=== PATIENT | male | born 1980 | race Caucasian/White ===

== ENCOUNTER 2023-02-08 14:16 | Inpatient (IN) | payer OTHER ==
[2023-02-08] MEDS ORDERED: Albuterol/Ipratropium 3.0-0.5 MG/3 ML Neb Soln NEB PRN ×2 (14:46→16:00)
[2023-02-08] MEDS ORDERED: Temazepam 15 MG Cap PO PRN (14:46)
[2023-02-08] MEDS ORDERED: Sennosides/Docusate Sodium 50-8.6 MG Tab PO PRN (14:46)
[2023-02-08] MEDS ORDERED: Acetaminophen 325 MG Tab PO PRN (14:46)
[2023-02-08] MEDS ORDERED: Melatonin 3 MG Tab PO PRN (14:46)
[2023-02-08] MEDS ORDERED: Polyethylene Glycol 3350 Powder 17 GM Packet PO PRN (14:46)
[2023-02-08] MEDS ORDERED: Sodium Chloride 0.9% 10 ML Syringe FLUSH PRN (14:46)
[2023-02-08] MEDS ORDERED: Acetaminophen/HYDROcodone 325-10 MG Tab PO PRN (14:46)
[2023-02-08] MEDS ORDERED: Benzonatate 100 MG Cap PO PRN (14:46)
[2023-02-08] MEDS ORDERED: Magnesium Hydroxide 400 MG/5 ML Susp 30 ML Cup PO PRN (14:46)
[2023-02-08] MEDS: metFORMIN 500 MG Tab PO SCH (18:09)
[2023-02-08] MEDS: Apixaban 5 MG Tab PO SCH (21:01)
[2023-02-08] MEDS: Furosemide 40 MG Tab PO SCH (21:01)
[2023-02-08] MEDS: amLODIPine 5 MG Tab PO SCH (21:01)
[2023-02-08] MEDS: atorvaSTATin 10 MG Tab PO SCH (21:01)
[2023-02-08] MEDS: hydrALAZINE 25 MG Tab PO SCH (21:02)
[2023-02-08] MEDS: guaiFENesin/Dextromethorphan 100-10 MG/5 ML Soln 5 ML Cup PO PRN (21:14)
[2023-02-09] MEDS: Pantoprazole 40 MG Tab.CR PO SCH (06:02)
[2023-02-09] MEDS: Aspirin 81 MG Tab.Chew PO SCH (09:00)
[2023-02-09] MEDS: Magnesium Oxide 400 MG Tab PO SCH (09:00)
[2023-02-09] MEDS: Furosemide 40 MG Tab PO SCH ×2 (09:00→20:38)
[2023-02-09] MEDS: metFORMIN 500 MG Tab PO SCH ×2 (09:00→17:12)
[2023-02-09] MEDS: Apixaban 5 MG Tab PO SCH ×2 (09:01→20:38)
[2023-02-09] MEDS: hydrALAZINE 25 MG Tab PO SCH ×2 (09:01→20:38)
[2023-02-09] MEDS: Losartan 50 MG Tab PO SCH (09:03)
[2023-02-09] MEDS: Fluticasone NASAL Spray 16 GM Bottle NASBOTH SCH ×2 (16:06→20:40)
[2023-02-09] MEDS ORDERED: Ondansetron 4 MG Tab.DIS PO PRN (16:09)
[2023-02-09] MEDS ORDERED: Scopolamine 1.5 MG Transdermal Patch TOP ONE (16:10)
[2023-02-09] MEDS: atorvaSTATin 10 MG Tab PO SCH (20:37)
[2023-02-09] MEDS: guaiFENesin/Dextromethorphan 100-10 MG/5 ML Soln 5 ML Cup PO PRN (20:37)
[2023-02-09] MEDS: amLODIPine 5 MG Tab PO SCH (20:38)
[2023-02-10] MEDS: Pantoprazole 40 MG Tab.CR PO SCH (06:02)
[2023-02-10] MEDS ORDERED: guaiFENesin 600 MG Tab.ER PO SCH (09:00)
[2023-02-10] MEDS: Losartan 50 MG Tab PO SCH (10:25)
[2023-02-10] MEDS: Apixaban 5 MG Tab PO SCH ×2 (10:25→20:53)
[2023-02-10] MEDS: hydrALAZINE 25 MG Tab PO SCH ×2 (10:26→20:52)
[2023-02-10] MEDS: Furosemide 40 MG Tab PO SCH ×2 (10:26→20:54)
[2023-02-10] MEDS: Magnesium Oxide 400 MG Tab PO SCH (10:26)
[2023-02-10] MEDS: metFORMIN 500 MG Tab PO SCH ×2 (10:26→18:00)
[2023-02-10] MEDS: Aspirin 81 MG Tab.Chew PO SCH (10:26)
[2023-02-10] MEDS: Fluticasone NASAL Spray 16 GM Bottle NASBOTH SCH ×2 (10:27→20:58)
[2023-02-10] MEDS ORDERED: guaiFENesin 600 MG Tab.ER PO ONE ×2 (18:01→21:00)
[2023-02-10] MEDS ORDERED: predniSONE 20 MG Tab PO ONE ×2 (18:02→21:00)
[2023-02-10] MEDS ORDERED: Oxymetazoline 0.05% Nasal Spray 30 ML Bottle NASBOTH PRN (18:02)
[2023-02-10] MEDS ORDERED: diphenhydrAMINE 50 MG Cap PO ONE ×2 (18:03→21:00)
[2023-02-10] MEDS: amLODIPine 5 MG Tab PO SCH (20:52)
[2023-02-10] MEDS: atorvaSTATin 10 MG Tab PO SCH (20:53)
[2023-02-11] MEDS: Pantoprazole 40 MG Tab.CR PO SCH ×2 (05:52→16:51)
[2023-02-11 06:20] LABS: BASOPHILS PERCENT AUTO 0.2 % (0.0-1.0); EOSINOPHILS PERCENT AUTO 0.1 % (1.0-3.0); HEMATOCRIT 44.6 % (40.0-54.0); HEMOGLOBIN 14.9 g/dL (14.0-18.0); LYMPHOCYTES PERCENT AUTO 13.8 % (20.5-50.1); MEAN CORPUSCULAR HGB CONC 33.4 g/dL (33.0-35.0); MEAN CORPUSCULAR VOLUME 89.9 fL (80-100); MONOCYTES PERCENT AUTO 2.8 % (2-8); NEUTROPHILS PERCENT AUTO 83.1 % (42.2-75.2); PLATELET COUNT,PLT 237 10^3/uL (150-450); RED BLOOD CELL COUNT 4.96 10^6/uL (4.6-6.2); WHITE BLOOD CELL COUNT,WBC 11.8 10^3/uL (5.0-10.0)
[2023-02-11 06:36] LABS: ALBUMIN 2.8 g/dL (3.4-5.0); ANION GAP 14.2 mEq/L (7-13); BUN/CREATININE RATIO 20.9 (No establ ref range); CALCIUM 8.5 mg/dL (8.5-10.1); CREATININE 1.39 mg/dL (0.70-1.30); EST CRCL DRUG DOSING (CG) 82.74 mL/min; POTASSIUM,K 4.2 mmol/L (3.5-5.1); PROTEIN TOTAL,TP 7.4 g/dL (6.4-8.2)
[2023-02-11 06:42] LABS: A/G RATIO 0.61
[2023-02-11] MEDS: Aspirin 81 MG Tab.Chew PO SCH (08:05)
[2023-02-11] MEDS: Apixaban 5 MG Tab PO SCH ×2 (08:05→21:08)
[2023-02-11] MEDS: guaiFENesin 600 MG Tab.ER PO SCH ×2 (08:05→21:07)
[2023-02-11] MEDS: metFORMIN 500 MG Tab PO SCH ×2 (08:05→17:30)
[2023-02-11] MEDS: Furosemide 40 MG Tab PO SCH (08:06)
[2023-02-11] MEDS: Magnesium Oxide 400 MG Tab PO SCH (08:06)
[2023-02-11] MEDS: Losartan 50 MG Tab PO SCH (08:06)
[2023-02-11] MEDS: hydrALAZINE 25 MG Tab PO SCH ×2 (08:06→21:06)
[2023-02-11] MEDS: Fluticasone NASAL Spray 16 GM Bottle NASBOTH SCH ×2 (08:07→21:09)
[2023-02-11] MEDS: Loratadine 10 MG Tab PO SCH (21:07)
[2023-02-11] MEDS: atorvaSTATin 10 MG Tab PO SCH (21:08)
[2023-02-11] MEDS: amLODIPine 5 MG Tab PO SCH (21:09)
[2023-02-11] MEDS: guaiFENesin/Dextromethorphan 100-10 MG/5 ML Soln 5 ML Cup PO PRN (22:51)
[2023-02-12] MEDS: Pantoprazole 40 MG Tab.CR PO SCH ×2 (05:49→17:00)
[2023-02-12] MEDS: metFORMIN 500 MG Tab PO SCH ×2 (09:16→17:00)
[2023-02-12] MEDS: Apixaban 5 MG Tab PO SCH ×2 (09:16→21:16)
[2023-02-12] MEDS: Aspirin 81 MG Tab.Chew PO SCH (09:16)
[2023-02-12] MEDS: Losartan 50 MG Tab PO SCH (09:17)
[2023-02-12] MEDS: guaiFENesin 600 MG Tab.ER PO SCH ×2 (09:18→21:16)
[2023-02-12] MEDS: Magnesium Oxide 400 MG Tab PO SCH (09:18)
[2023-02-12] MEDS: hydrALAZINE 25 MG Tab PO SCH ×2 (09:18→21:16)
[2023-02-12] MEDS: Fluticasone NASAL Spray 16 GM Bottle NASBOTH SCH ×2 (09:19→21:17)
[2023-02-12] MEDS: amLODIPine 5 MG Tab PO SCH (21:16)
[2023-02-12] MEDS: Loratadine 10 MG Tab PO SCH (21:17)
[2023-02-12] MEDS: atorvaSTATin 10 MG Tab PO SCH (21:17)
[2023-02-13] MEDS: Pantoprazole 40 MG Tab.CR PO SCH ×2 (05:43→15:37)
[2023-02-13] MEDS: Fluticasone NASAL Spray 16 GM Bottle NASBOTH SCH ×2 (09:11→21:31)
[2023-02-13] MEDS: Apixaban 5 MG Tab PO SCH ×2 (09:12→21:31)
[2023-02-13] MEDS: Losartan 50 MG Tab PO SCH (09:12)
[2023-02-13] MEDS: Aspirin 81 MG Tab.Chew PO SCH (09:12)
[2023-02-13] MEDS: metFORMIN 500 MG Tab PO SCH ×2 (09:13→17:21)
[2023-02-13] MEDS: Magnesium Oxide 400 MG Tab PO SCH (09:13)
[2023-02-13] MEDS: hydrALAZINE 25 MG Tab PO SCH ×2 (09:13→21:30)
[2023-02-13] MEDS: Furosemide 40 MG Tab PO SCH (09:13)
[2023-02-13] MEDS: guaiFENesin 600 MG Tab.ER PO SCH ×2 (09:13→21:31)
[2023-02-13] MEDS: atorvaSTATin 10 MG Tab PO SCH (21:30)
[2023-02-13] MEDS: amLODIPine 5 MG Tab PO SCH (21:30)
[2023-02-13] MEDS: Loratadine 10 MG Tab PO SCH (21:30)
[2023-02-14] MEDS: Pantoprazole 40 MG Tab.CR PO SCH (05:23)
[2023-02-14] MEDS: guaiFENesin 600 MG Tab.ER PO SCH (10:29)
[2023-02-14] MEDS: Aspirin 81 MG Tab.Chew PO SCH (10:29)
[2023-02-14] MEDS: Apixaban 5 MG Tab PO SCH (10:29)
[2023-02-14] MEDS: Magnesium Oxide 400 MG Tab PO SCH (10:29)
[2023-02-14] MEDS: Losartan 50 MG Tab PO SCH (10:29)
[2023-02-14] MEDS: hydrALAZINE 25 MG Tab PO SCH (10:29)
[2023-02-14] MEDS: Furosemide 40 MG Tab PO SCH (10:30)
[2023-02-14] MEDS: Fluticasone NASAL Spray 16 GM Bottle NASBOTH SCH (10:30)
[2023-02-14] MEDS: metFORMIN 500 MG Tab PO SCH (10:30)
== END 2023-02-14 16:27 | disposition home health service (06) | DRG 176 ==
LOC: DL.MS 14:49 → UNDOADMIN 14:49
PROVIDERS: ADMIT Internal Medicine; ATTEND Internal Medicine
DX: I26.99 Other pulmonary embolism without acute cor pulmonale (principal); I24.9 Acute ischemic heart disease, unspecified; E87.1 Hypo-osmolality and hyponatremia; N17.9 Acute kidney failure, unspecified; Z68.44 Body mass index [BMI] 60.0-69.9, adult; I10 Essential (primary) hypertension; K21.9 Gastro-esophageal reflux disease without esophagitis; G47.33 Obstructive sleep apnea (adult) (pediatric); E66.9 Obesity, unspecified; E78.00 Pure hypercholesterolemia, unspecified; G47.00 Insomnia, unspecified; E11.9 Type 2 diabetes mellitus without complications; Z79.82 Long term (current) use of aspirin; Z79.899 Other long term (current) drug therapy; Z79.84 Long term (current) use of oral hypoglycemic drugs; Z86.718 Personal history of other venous thrombosis and embolism; Z79.01 Long term (current) use of anticoagulants
CPT/HCPCS: 36415; 80053; 82947; 83735; 85025; 94060; 94660; 94667; 94668; 94760; 97110-GO; 97110-GP; 97116-GP; 97161-GP; 97165-GO; 97530-GO; 97530-GP; 99305; 99308; A9270-GY; J3490; J7512; Q0163

== ENCOUNTER 2024-02-17 10:52 | Emergency (ER) | payer BC, OTHER ==
[2024-02-17 11:30] LABS: BASOPHILS PERCENT AUTO 0.4 % (0.0-1.0); EOSINOPHILS PERCENT AUTO 1.7 % (1.0-3.0); HEMATOCRIT 46.3 % (40.0-54.0); HEMOGLOBIN 15.1 g/dL (14.0-18.0); LYMPHOCYTES PERCENT AUTO 23.8 % (20.5-50.1); MEAN CORPUSCULAR HEMOGLOBIN 29.1 pg (27.0-34.0); MEAN CORPUSCULAR HGB CONC 32.6 g/dL (33.0-35.0); MEAN CORPUSCULAR VOLUME 89.2 fL (80-100); MONOCYTES PERCENT AUTO 5.9 % (2-8); NEUTROPHILS PERCENT AUTO 68.2 % (42.2-75.2); PLATELET COUNT,PLT 293 10^3/uL (150-450); RED BLOOD CELL COUNT 5.19 10^6/uL (4.6-6.2); WHITE BLOOD CELL COUNT,WBC 10.3 10^3/uL (5.0-10.0)
[2024-02-17 11:48] LABS: APPEARANCE,URINE CLEAR (CLEAR); BILIRUBIN,URINE NEGATIVE (NEGATIVE); COLOR,URINE YELLOW (YELLOW); GLUCOSE,URINE NEGATIVE (NEGATIVE); KETONES,URINE NEGATIVE (NEGATIVE); LEUKOCYTE ESTERASE,URINE NEGATIVE (NEGATIVE); NITRITE,URINE NEGATIVE (NEGATIVE); OCCULT BLOOD,URINE NEGATIVE (NEGATIVE); PROTEIN,URINE NEGATIVE (NEGATIVE); UROBILINOGEN,URINE 0.2 mg/dL (0.2-1.0)
[2024-02-17 11:52] LABS: B-TYPE NATRIURETIC PEPTIDE,BNP < 5 pg/ml (0-100)
[2024-02-17 11:58] LABS: A/G RATIO 0.8; ALANINE AMINOTRANSFERASE,ALT 98 U/L (16-63); ALBUMIN 3.5 g/dL (3.4-5.0); ALKALINE PHOSPHATASE 126 U/L (46-116); ANION GAP 12.7 mEq/L (7-13); ASPARTATE AMNIOTRANSFERASE,AST 53 U/L (15-37); BILIRUBIN TOTAL 0.9 mg/dL (0.2-1.0); BLOOD UREA NITROGEN,BUN 15 mg/dL (7-18); BUN/CREATININE RATIO 15.3 (No establ ref range); CARBON DIOXIDE,CO2 26 mmol/L (21-32); CHLORIDE,CL 104 mmol/L (98-107); CREATININE 0.98 mg/dL (0.70-1.30); GLUCOSE RANDOM 123 mg/dL (70-99); MAGNESIUM 1.8 mg/dL (1.8-2.4); POTASSIUM,K 3.7 mmol/L (3.5-5.1); PROTEIN TOTAL,TP 7.7 g/dL (6.4-8.2); SODIUM,NA 139 mmol/L (136-145)
[2024-02-17 11:59] LABS: ESTIMATED GFR 98 mL/min (>=60)
[2024-02-17] MEDS: Albuterol/Ipratropium 3.0-0.5 MG/3 ML Neb Soln NEB ONE (12:30)
[2024-02-17] MEDS: Dexamethasone 4 MG/ML SDV IM ONE (12:30)
== END 2024-02-17 12:35 | disposition home or self-care (01) ==
LOC: DL.ED 10:52
DX: J20.8 Acute bronchitis due to other specified organisms (principal); R94.5 Abnormal results of liver function studies; I10 Essential (primary) hypertension; E78.00 Pure hypercholesterolemia, unspecified; K21.9 Gastro-esophageal reflux disease without esophagitis; E66.9 Obesity, unspecified; Z86.16 Personal history of COVID-19; Z79.82 Long term (current) use of aspirin; Z79.84 Long term (current) use of oral hypoglycemic drugs; Z79.01 Long term (current) use of anticoagulants; Z79.899 Other long term (current) drug therapy; Z68.44 Body mass index [BMI] 60.0-69.9, adult
CPT/HCPCS: 36415; 71046; 80053; 81003; 82947; 83735; 83880; 84484; 85025; 85379; 87428-QW; 93005; 93010; 96372; 99284; 99285; J1100; J7620-GY

== ENCOUNTER 2024-05-02 10:22 | Emergency (ER) | payer BC ==
[2024-05-02] MEDS ORDERED: Sodium Chloride 0.9% 10 ML Syringe FLUSH PRN ×2 (10:37)
[2024-05-02 10:51] LABS: BASOPHILS PERCENT AUTO 0.6 % (0.0-1.0); EOSINOPHILS PERCENT AUTO 2.3 % (1.0-3.0); HEMATOCRIT 46.8 % (40.0-54.0); HEMOGLOBIN 15.2 g/dL (14.0-18.0); LYMPHOCYTES PERCENT AUTO 28.1 % (20.5-50.1); MEAN CORPUSCULAR HEMOGLOBIN 28.9 pg (27.0-34.0); MEAN CORPUSCULAR HGB CONC 32.5 g/dL (33.0-35.0); MONOCYTES PERCENT AUTO 6.6 % (2-8); NEUTROPHILS PERCENT AUTO 62.4 % (42.2-75.2); PLATELET COUNT,PLT 295 10^3/uL (150-450); RED BLOOD CELL COUNT 5.26 10^6/uL (4.6-6.2); WHITE BLOOD CELL COUNT,WBC 8.9 10^3/uL (5.0-10.0)
[2024-05-02] MEDS: Iopamidol 755 Mg/ML 100 ML Bottle IVPUSH ONE (11:06)
[2024-05-02 11:17] LABS: INR 1.1 (0.9-1.2); PROTHROMBIN TIME 11.4 SEC (9.0-12.0)
[2024-05-02 11:18] LABS: A/G RATIO 0.9; ALBUMIN 3.6 g/dL (3.4-5.0); ANION GAP 15.5 mEq/L (7-13); BILIRUBIN TOTAL 1.2 mg/dL (0.2-1.0); BUN/CREATININE RATIO 13.9 (No establ ref range); CALCIUM 8.7 mg/dL (8.5-10.1); CREATININE 1.01 mg/dL (0.70-1.30); EST CRCL DRUG DOSING (CG) 109.65 mL/min; POTASSIUM,K 3.5 mmol/L (3.5-5.1); PROTEIN TOTAL,TP 7.8 g/dL (6.4-8.2)
== END 2024-05-02 12:35 | disposition home or self-care (01) ==
LOC: DL.ED 10:22
DX: R06.02 Shortness of breath (principal); I10 Essential (primary) hypertension; K21.9 Gastro-esophageal reflux disease without esophagitis; E66.9 Obesity, unspecified; Z86.16 Personal history of COVID-19; Z79.899 Other long term (current) drug therapy; Z79.01 Long term (current) use of anticoagulants; Z79.84 Long term (current) use of oral hypoglycemic drugs; Z79.82 Long term (current) use of aspirin; Z68.44 Body mass index [BMI] 60.0-69.9, adult
CPT/HCPCS: 36415; 71275; 80053; 84484; 85025; 85610; 93005; 99285; Q9967

== ENCOUNTER 2024-06-02 14:01 | Emergency (ER) | payer BC ==
[2024-06-02 15:44] LABS: BASOPHILS PERCENT AUTO 0.6 % (0.0-1.0); EOSINOPHILS PERCENT AUTO 1.2 % (1.0-3.0); HEMATOCRIT 46.4 % (40.0-54.0); HEMOGLOBIN 14.8 g/dL (14.0-18.0); LYMPHOCYTES PERCENT AUTO 17.8 % (20.5-50.1); MEAN CORPUSCULAR HEMOGLOBIN 28.1 pg (27.0-34.0); MEAN CORPUSCULAR HGB CONC 31.9 g/dL (33.0-35.0); NEUTROPHILS PERCENT AUTO 73.4 % (42.2-75.2); PLATELET COUNT,PLT 319 10^3/uL (150-450); RED BLOOD CELL COUNT 5.27 10^6/uL (4.6-6.2); WHITE BLOOD CELL COUNT,WBC 10.5 10^3/uL (5.0-10.0)
[2024-06-02 16:03] LABS: B-TYPE NATRIURETIC PEPTIDE,BNP 5 pg/ml (0-100)
[2024-06-02 16:26] LABS: A/G RATIO 0.8; ALANINE AMINOTRANSFERASE,ALT 130 U/L (16-63); ALBUMIN 3.4 g/dL (3.4-5.0); ALKALINE PHOSPHATASE 124 U/L (46-116); ANION GAP 10.7 mEq/L (7-13); ASPARTATE AMNIOTRANSFERASE,AST 71 U/L (15-37); BILIRUBIN TOTAL 1.3 mg/dL (0.2-1.0); BLOOD UREA NITROGEN,BUN 19 mg/dL (7-18); BUN/CREATININE RATIO 18.1 (No establ ref range); CALCIUM 8.8 mg/dL (8.5-10.1); CARBON DIOXIDE,CO2 27 mmol/L (21-32); CHLORIDE,CL 101 mmol/L (98-107); CREATININE 1.05 mg/dL (0.70-1.30); EST CRCL DRUG DOSING (CG) 105.47 mL/min; GLUCOSE RANDOM 119 mg/dL (70-99); POTASSIUM,K 3.7 mmol/L (3.5-5.1); PROTEIN TOTAL,TP 7.6 g/dL (6.4-8.2); SODIUM,NA 135 mmol/L (136-145)
[2024-06-02 16:28] LABS: C-REACTIVE PROTEIN < 0.50 ng/dL (<=0.50); ESTIMATED GFR 90 mL/min (>=60)
== END 2024-06-02 16:50 | disposition home or self-care (01) ==
LOC: DL.ED 14:01
DX: R20.2 Paresthesia of skin (principal); I10 Essential (primary) hypertension; E78.00 Pure hypercholesterolemia, unspecified; K21.9 Gastro-esophageal reflux disease without esophagitis; E66.9 Obesity, unspecified; Z68.44 Body mass index [BMI] 60.0-69.9, adult; Z86.16 Personal history of COVID-19; Z79.01 Long term (current) use of anticoagulants; Z79.82 Long term (current) use of aspirin; Z79.84 Long term (current) use of oral hypoglycemic drugs; Z79.899 Other long term (current) drug therapy
CPT/HCPCS: 36415; 70450; 80053; 82607; 83036; 83880; 84484; 85025; 86140; 99283; 99285